=== PATIENT | male | born 1985 | race Caucasian/White ===

== ENCOUNTER 2021-07-10 23:52 | Emergency (ER) | payer BC, OTHER ==
[2021-07-11] MEDS ORDERED: IBUPROFEN 800 MG (MOTRIN) TAB PO STA (00:06)
[2021-07-11] MEDS ORDERED: ONDANSETRON 4 MG (ZOFRAN) ORAL DISSOLVE TAB SL STA (00:06)
--- NOTE | 2021-07-11 00:06 | ED Fever ---
History of Present Illness General Stated Complaint: FEVER;CHILLS;BODY ACHES;NAUSEA History of Present Illness Date Seen by Provider: Jul 11, 2021 Time Seen by Provider: 00:02 Initial Comments 36-year-old male presents with body aches, nausea, diarrhea, fever and chills. Reports that started around 4 PM this afternoon. Patient reports has been around people with COVID. He denies any cough, shortness of breath, headache, sore throat Timing/Duration: just prior to arrival Allergies and Home Medications Allergies Coded Allergies: No Known Drug Allergies (Unverified , 07/11/21) Patient Home Medication List Home Medication List Reviewed: Yes Review of Systems Review of Systems Constitutional: chills, fever, malaise Respiratory: No cough, No short of breath Cardiovascular: No chest pain, No palpitations Gastrointestinal: No abdominal pain; diarrhea, nausea; No vomiting Genitourinary: no symptoms reported Musculoskeletal: see HPI Skin: no symptoms reported Hematologic/Lymphatic: No Symptoms Reported Physical Exam Vital Signs - First Documented 07/11/21 00:00 Temp 36.8 Pulse 85 Resp 18 B/P (MAP) 115/86 (96) Pulse Ox 97 O2 Delivery Room Air Capillary Refill : Height: '" Weight: lbs. oz. kg; BMI Method: General Appearance: WD/WN Respiratory: lungs clear, normal breath sounds Cardiovascular: normal peripheral pulses, regular rate, rhythm Gastrointestinal: non tender, soft Neurologic/Psychiatric: alert, normal mood/affect, oriented x 3 Skin: normal color, warm/dry Progress/Results/Core Measures Suspected Sepsis SIRS Temperature: Pulse: Respiratory Rate: Blood Pressure / Mean: Results/Orders Lab Results Laboratory Tests Test 07/11/21 00:15 Range/Units Influenza Type A Antigen NEGATIVE NEGATIVE Influenza Type B Antigen NEGATIVE NEGATIVE My Orders Orders - LLUVIA HUERTA DO Covid 19 Inhouse Test (07/11/21 00:06) Influenza A & B Antigens (07/11/21 00:06) Isolation Central Supply Req (07/11/21 00:06) Ibuprofen Tablet (Motrin Tablet) (07/11/21 00:06) Ondansetron Oral Dissolve Tab (Zofran (07/11/21 00:06) Vital Signs/I&O 07/11/21 00:00 Temp 36.8 Pulse 85 Resp 18 B/P (MAP) 115/86 (96) Pulse Ox 97 O2 Delivery Room Air Capillary Refill : Progress Note : Progress Note Patient with stable vital signs. Patient negative for influenza. Patient with multiple COVID exposure and likely with COVID. Discussed supportive care. Keanu denise stable and discharged home Departure Impression Primary Impression: Suspected 2019-nCoV infection Disposition: HOME, SELF-CARE Condition: Stable Departure-Patient Inst. Referrals: NO,LOCAL PHYSICIAN (PCP/Family) Primary Care Physician Patient Instructions: COVID-19 (DC) Add. Discharge Instructions: tylenol or ibuprofen every 4-6 hr as needed for fever,chills and body aches Scripts Ondansetron (Ondansetron Odt) 4 Mg Tab.rapdis 4 MG PO Q6H PRN for NAUSEA/VOMITING, #30 TAB 0 Refills Prov: LLUVIA HUERTA DO 07/11/21 LLUVIA HUERTA DO Jul 11, 2021 00:06
[2021-07-11 00:46] VITALS: BP 113/49
[2021-07-11] MEDS ORDERED: ONDA4TAB11 PO (00:49)
== END 2021-07-11 00:51 | disposition home or self-care (01) ==
LOC: ER FS 23:56
DX: Z20.822 Contact with and (suspected) exposure to COVID-19 (principal)
CPT/HCPCS: 87636; 87804; 99283